=== PATIENT | female | born 1945 | race Caucasian/White ===

== ENCOUNTER 2018-05-28 13:00 | Outpatient (RCR) | payer MEDICARE, SELFPAY | END 2018-05-28 13:10 | disposition home or self-care (01) | LOC: PT 13:00 | PROVIDERS: Visit Provider Physician Assistant | DX: M25.562 Pain in left knee (principal); M25.551 Pain in right hip | CPT/HCPCS: 97035; 97110; 97163 ==

== ENCOUNTER → 2018-06-30 17:04 | Outpatient (CLI) | payer MEDICARE, SELFPAY ==
[2018-06-30 19:07] LABS: Calcium 9.5 mg/dL (8.5-10.1); Free T4 (Free Thyroxine) 0.86 ng/dl (0.76-1.46); Thyroid Stimulating Hormone 1.18 uIU/ml (0.358-3.740)
[2018-07-02 07:54] LABS: Thyroid Peroxidase Antibodies <6 IU/mL (0-34)
[2018-07-04 08:48] LABS: Thyroid Stimulating Immunoglob <0.10 IU/L (0.00-0.55)
== END ==
PROVIDERS: Visit Provider Otolaryngology
DX: E04.1 Nontoxic single thyroid nodule (principal)
CPT/HCPCS: 36415; 82310; 84439; 84443; 84445; 86376

== ENCOUNTER → 2018-07-11 08:01 | Outpatient (CLI) | payer MEDICARE, SELFPAY ==
[2018-07-13 18:27] LABS: Calcium, Ionized 5.5 mg/dL (4.5-5.6); Parathyroid Hormone Intact 26 pg/mL (15-65)
== END ==
PROVIDERS: PCP Physician Assistant; Visit Provider Physician Assistant
DX: E04.1 Nontoxic single thyroid nodule (principal)
CPT/HCPCS: 36415; 82330; 83970

== ENCOUNTER 2018-12-25 11:00 | Outpatient (RCR) | payer MEDICARE, SELFPAY | END 2018-12-25 11:05 | disposition home or self-care (01) | LOC: OT 11:00 | PROVIDERS: Visit Provider Orthopaedic Surgery Adult Reconstructive Orthopaedic Surgery | DX: S42.92XD Fracture of left shoulder girdle, part unspecified, subsequent encounter for fracture with routine healing (principal) | CPT/HCPCS: 97014; 97110; 97140; 97165; G0283 ==

== ENCOUNTER → 2019-01-13 13:32 | Outpatient (CLI) | payer MEDICARE, SELFPAY ==
--- NOTE | 2019-01-13 13:34 | US_ITS ---
PROCEDURE: US THYROID CLINICAL INDICATION: Thyroid nodule COMPARISON: No exams were available for comparison FINDINGS: Right lobe: 2.5 x 5.2 x 1.8 centimeters. Mild inhomogeneous echogenicity. There are a few small hypoechoic nodules in the mid and lower lobe on the right side as well as small anechoic foci in the right lower lobe. There is a isoechoic lesion which is solid and wider compared to height measuring 1.2 centimeters in transverse diameter and 0.7 centimeters in height. The margins are well defined and there is no abnormal echogenic shadowing. Left lobe: 2.7 x 4.9 x 1.8 centimeters and also mildly inhomogeneous echogenicity. The entire left lobe shows scattered small anechoic foci with a small 0.6 centimeter hypoechoic nodule which is partially cystic in the lower pole and a hypoechoic nodule in the anterior upper pole measuring 0.6 centimeters. Isthmus: 1.2 centimeters. Additional findings: IMPRESSION: Multinodular thyroid gland. Nodules have a benign appearance although the anterior upper pole right thyroid lobe solid nodule is TR category 3, mildly suspicious and ACR recommendation is follow-up at 6-12 months. Dictated by: Augie Hayes 01/13/2019 15:08 Electronically signed by Augie Hayes in [facility] 01/13/2019 15:08
== END ==
PROVIDERS: PCP Physician Assistant; Visit Provider Otolaryngology
DX: E04.1 Nontoxic single thyroid nodule (principal)
CPT/HCPCS: 76536

== ENCOUNTER → 2019-01-19 14:57 | Outpatient (CLI) | payer MEDICARE, SELFPAY | PROVIDERS: Visit Provider Otolaryngology | DX: E04.9 Nontoxic goiter, unspecified (principal) | CPT/HCPCS: 36415; 84443 ==

== ENCOUNTER → 2020-06-08 07:40 | Outpatient (CLI) | payer MEDICARE, SELFPAY ==
--- NOTE | 2020-06-08 07:47 | CA_ITS ---
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 (R) 73.6/22.9 cm/sec RI: 0.68 Segmental A. Sup (R) 50.7/18.0 cm/sec Segmental A. Mid (R) 73.6/22.9 cm/sec Segmental A. Inf (R) 73.6/27.8 cm/sec Origin (L) 134.7/ cm/sec Proximal (L) 112.3/ cm/sec Mid (L) 163.2/ cm/sec Distal (L) 146.5/ cm/sec Renal Aorta Ratio (L) 2.00 Segmental A. (L) 65.1/17.1 cm/sec RI: 0.73 Segmental A. Sup (L) 51.3/19.2 cm/sec Segmental A. Mid (L) 64.1/16.0 cm/sec Segmental A. Inf (L) 65.1/17.1 cm/sec Renal Measurements Kidney Size (R) 11.2x6.5 cm Cortical Thickness (R) 1.1 cm Kidney Size (L) 11.0x6.8 cm Cortical Thickness (L) 1.4 cm Findings Study suggests less than 60% stenosis of the right renal artery. Study suggests no evidence of stenosis of the left renal artery. 3.4 X 3.4 cm cyst mid pole of right kidney. Conclusion Study suggests less than 60% stenosis of the right renal artery. Study suggests no evidence of stenosis of the left renal artery. 3.4 X 3.4 cm complex cyst mid pole of right kidney. Electronically signed by : Keon Chong MD 06/08/2020 17:39:49
--- NOTE | 2020-06-08 08:39 | US_ITS ---
PROCEDURE: US KIDNEY CLINICAL INDICATION: JANEEN Chronic kidney disease, hypertension COMPARISON: CT ABDPELWO CT abdomen pelvis wo con from 09/11/2018 US US THYROID from 01/13/2019 US CA RENAL ARTERY DUPLEX from 06/08/2020 FINDINGS: The right kidney is [id number]. There is mild cortical thinning the right kidney. There is a complex hypoechoic nodule projecting off the anterior aspect of the right kidney measuring 3 x 2 cm. This has some low level echoes anteriorly. This may represent a complex cyst. Cannot exclude a solid component. No hydronephrosis The left kidney is [id number]. Mild cortical thinning IMPRESSION: No hydronephrosis. Mild bilateral renal cortical thinning. Complex cystic lesion of the right kidney. Consider CT of the kidneys with renal protocol for further evaluation without and with contrast. MRI would also be of further value without and with gadolinium enhancement if patient is MRI compatible Dictated by: Keon Chong MD 06/08/2020 18:54 Keon Chong MD in [facility] 06/08/2020 18:54
== END ==
PROVIDERS: PCP Nurse Practitioner Family; Visit Provider Internal Medicine Nephrology
DX: N18.2 Chronic kidney disease, stage 2 (mild) (principal); I12.9 Hypertensive chronic kidney disease with stage 1 through stage 4 chronic kidney disease, or unspecified chronic kidney disease
CPT/HCPCS: 76770; 93976

== ENCOUNTER 2020-06-08 12:06 | Emergency (ER) | payer MEDICARE, SELFPAY ==
[2020-06-08 12:07] VITALS: BP 135/57; PULSE 80; RESP 18; TEMP 36.8; O2SAT 98; BMI 22.3
--- NOTE | 2020-06-08 12:11 | HMH.EDDIZZ ---
ED Disposition Clinical Impression: UTI (urinary tract infection) Qualifiers: Urinary tract infection type: site unspecified Hematuria presence: without hematuria Qualified Code(s): N39.0 - Urinary tract infection, site not specified Disposition: Home, Self-Care Condition on Discharge: Good Referrals: Radha Calvin APRN [Primary Care Provider] - 3 days Time of Disposition: 14:05 - Critical Care Critical Care Time: No Attestation: On , the high probability of a clinically significant, sudden or life threatening deterioration of the following system(s) required my full and direct attention, intervention and personal management. The time I documented below is in addition to time spent performing reported procedures but includes the following listed in this critical care notation. Medical Decision Making - Medical Records Medical records reviewed: Yes: I reviewed the patient's medical records. - Harvinder Inquiry Pt receiving controlled substance: No Vital Signs: 06/08/20 12:07 Temperature 98.2 F Temperature Source Oral Pulse Rate [Right Radial] 80 Respiratory Rate 18 Blood Pressure [Right Arm] 135/57 L Blood Pressure Mean [Right Arm] 83 Blood Pressure Source [Right Arm] Automatic Cuff Blood Pressure Position [Right Arm] Sitting 02 Sat by Pulse Oximetry 98 Oxygen Delivery Method Room Air - Lab Data Lab results reviewed: Yes: I reviewed the patient's lab results. Lab Results 06/08/20 12:35: WBC 17.5 H, RBC 4.05 L, Hgb 12.9, Hct 39.3, MCV 97.0, MCH 31.8 H, MCHC 32.7, RDW 12.9, Plt Count 350, MPV 7.3 L, Neut % (Auto) 75.0, Lymph % (Auto) 21.4, [place] % (Auto) 2.8, Eos % (Auto) 0.4, Baso % (Auto) 0.3, Neut # (Auto) 13.1 H, Lymph # (Auto) 3.7, [place] # (Auto) 0.5, Eos # (Auto) 0.1, Baso # (Auto) 0.1 06/08/20 12:35: Sodium 136, Potassium 4.3, Chloride 98, Carbon Dioxide 24, Anion Gap 18.3 H, BUN 28 H, Creatinine 1.60 H, Estimated Creat Clear 29, Estimated GFR 32 L, Est GFR ( Amer) 38 L, Glucose 144 H, Calcium 8.6, Total Bilirubin 0.6, AST 30, ALT 27, Alkaline Phosphatase 62, Total Protein 7.5, Albumin 4.9, Globulin 2.6, Albumin/Globulin Ratio 1.9 H 06/08/20 12:40: Urine Color Yellow, Urine Appearance Clear, Urine pH 6.0, Ur Specific [place] 1.020, Urine Protein 1+, Urine Glucose (UA) Negative, Urine Ketones Trace, Urine Blood Negative, Urine Nitrate Negative, Urine Bilirubin Negative, Urine Urobilinogen 0.2, Ur Leukocyte Esterase 2+ A, Urine WBC 10-20, Ur Squamous Epith Cells Occasional, Urine Bacteria 1+, Hyaline Casts 5-10, Fine Granular Casts Occasional Result diagrams: 06/08/20 12:35 06/08/20 12:35 Orders (Tests/Meds): ORDERS Category Date Time Status Complete Blood Count Auto Diff Stat Lab 06/08/20 12:35 Results Urine Culture Stat Micro 06/08/20 12:40 Received - ECG Data Tracing #1 74 bpm, normal sinus rhythm, no ST elevation or depression, no ectopy, normal intervals. ECG initial impression date: 06/08/20 ECG initial impression time: 13:40 Medical Decision Narrative: Very pleasant 74-year-old female evaluated for neuro symptoms. Patient is in no acute distress on initial evaluation. CBC, CMP, urinalysis, CT of the head without contrast have been ordered. EKG is also obtained. Physical exam is unremarkable. NIHSS 0. CBC reveals a white count of 17.5. Patient's most recent WBC was 15. Uncertain if she has a chronic elevation or if that was in the setting of acute illness. Metabolic panel is remarkable for JANEEN. CT of the head is unremarkable. Urinalysis consistent with urinary tract infection. Patient is appropriate and stable. Discussed with her she needs to hydrate better drinking water. We will send the patient home with a prescription for antibiotics. Follow-up with PCP later this week. Dizzy HPI - General Stated Complaint: fatigue, balance is off Time Seen by Provider: 06/08/20 12:11 Mode of Arrival: Ambulatory Source of Information: Patient, Relative Limitations: No Limita
--- NOTE | 2020-06-08 12:12 | CT_ITS ---
PROCEDURE: CT HEAD/BRAIN WO CON CLINICAL INDICATION: dizzy Dizziness with headache COMPARISON: No exams were available for comparison TECHNIQUE: Axial images obtained. All CT scans at the facility use one or more dose reduction, viz: automated exposure control, ma/kV adjustment per patient size (including targeted exams where dose is matched to indication, i.e. head), or iterative reconstruction technique. FINDINGS: No midline shift, mass effect, intracranial hemorrhage, hydrocephalus, or extra-axial fluid collection is evident. There is generalized atrophy with hypoattenuation of the periventricular white matter consistent with microangiopathic changes.. Artifact is present from patient's earring on the left. The calvarium has an unremarkable appearance. No mastoid effusion. No sinus air-fluid level. IMPRESSION: No acute intracranial finding Dictated by: Keon Chong MD 06/08/2020 13:30 Keon Chong MD in [facility] 06/08/2020 13:30
[2020-06-08 12:37] VITALS: BP 138/71; PULSE 82; RESP 16; O2SAT 98
[2020-06-08 12:48] LABS: Microscopic, Urine URINE MICROSCOPIC (MICROSCOPIC)
[2020-06-08 12:51] LABS: Appearance,Urine CLEAR (Clear); Blood, Urine Negative (Negative); Color,Urine YELLOW (Yellow); Glucose,Urine (UA) Negative (Negative); Ketones,Urine TRACE (Negative); Leukocyte Esterase,Urine 2+ (Negative); Nitrate,Urine Negative (Negative); Protein,Urine 1+ (Negative); Urobilinogen,Urine 0.2 EU/dl (0.2)
[2020-06-08 12:51] LABS: Basophils # 0.1 K/mm3 (0-0.2); Basophils % 0.3 % (0.1-2.0); Eosinophils # 0.1 K/mm3 (0.0-0.4); Eosinophils % 0.4 % (0.1-12.0); Hematocrit 39.3 % (37.0-47.0); Hemoglobin 12.9 g/dL (12.2-16.2); Lymphocytes # 3.7 K/mm3 (0.7-4.5); Lymphocytes % 21.4 % (10-50); Mean Corpuscular HGB Conc 32.7 g/dL (31.8-35.4); Mean Corpuscular Hemoglobin 31.8 pg (27.0-31.2); Mean Platelet Volume 7.3 fl (7.4-10.4); Monocytes # 0.5 K/mm3 (0.1-1.0); Monocytes % 2.8 % (1.7-9.3); Neutrophils # 13.1 K/mm3 (1.8-7.8); Platelet Count 350 K/mm3 (142-424); Red Blood Count 4.05 M/mm3 (4.20-5.40); Red Cell Distribution Width 12.9 % (11.5-17.5); White Blood Count 17.5 K/mm3 (4.8-10.8)
[2020-06-08 13:07] VITALS: PULSE 78; RESP 17; O2SAT 99
[2020-06-08 13:17] LABS: Chloride 98 mmol/L (98-107); Potassium 4.3 mmoL/L (3.5-5.1); Sodium 136 mmol/L (136-145)
[2020-06-08 13:20] LABS: Alanine Aminotransferase 27 U/L (12-78); Albumin Level 4.9 g/dl (3.5-5.0); Albumin/Globulin Ratio 1.9 (1.1-1.8); Alkaline Phosphatase 62 U/L (38-126); Anion Gap 18.3 mEq/L (5-15); Aspartate Amino Transferase 30 U/L (14-36); Bilirubin,Total 0.6 mg/dl (0.2-1.3); Blood Urea Nitrogen 28 mg/dl (7-17); Calcium 8.6 mg/dl (8.4-10.2); Carbon Dioxide 24 mmol/L (22.0-30.0); Creatinine Clearance Estimated 29 mL/min (50-200); Estimated Glomerular Filt Rate 32 ml/min (>60); GFR (African American) 38 ML/MIN (>60); Globulin 2.6 g/dL (1.3-3.2); Glucose 144 mg/dl (74-100); Total Protein,Serum 7.5 g/dl (6.3-8.2)
[2020-06-08 13:29] LABS: MANUAL DIFFERENTIAL MANUAL DIFFERENTIAL (MANUAL DIFF)
[2020-06-08 13:30] VITALS: BP 128/73; PULSE 77; RESP 16; O2SAT 97
--- NOTE | 2020-06-08 13:36 | ECG_ITS ---
APPROVED REPORT Exam: Resting ECG HR:74 bpm ECG Measurements Heart Rate 74 AXES PA 162 P 19 QRSd 92 QRS 73 QT 406 T 44 QTc 450 Conclusion Normal sinus rhythm Normal ECG Electronically signed by : Amado Barclay, 06/08/2020 17:46:01
[2020-06-08 13:52] LABS: Bacteria,Urine 1+ /lpf; Squamous Epithelial Cell,Urine Occasional #/hpf (0-5)
[2020-06-08 13:54] LABS: Fine Granular Casts,Urine Occasional #/lpf (0)
[2020-06-08 13:55] LABS: Bilirubin,Urine Negative (Negative)
[2020-06-08 14:00] VITALS: PULSE 76; RESP 18; O2SAT 98
[2020-06-08 14:04] LABS: Lymphocytes % 9 % (10-50); Monocytes % 7 % (2-9); Neutrophils % 84 % (42-76); Total Cells Counted 100
[2020-06-08 14:05] LABS: Platelet Estimate Normal; RBC Morphology Normal
[2020-06-08 14:14] VITALS: BP 117/75; PULSE 76; RESP 20; TEMP 36.6; O2SAT 98
== END 2020-06-08 14:15 | disposition home or self-care (01) ==
PROVIDERS: Emergency Provider Family Medicine; PCP Nurse Practitioner Family
DX: N30.00 Acute cystitis without hematuria (principal); E11.65 Type 2 diabetes mellitus with hyperglycemia; F41.8 Other specified anxiety disorders; I10 Essential (primary) hypertension; E78.5 Hyperlipidemia, unspecified; F17.210 Nicotine dependence, cigarettes, uncomplicated; Z88.7 Allergy status to serum and vaccine; Z79.899 Other long term (current) drug therapy
CPT/HCPCS: 70450; 76770; 80053; 81001; 85007; 85025; 87086; 93005; 93976; 99283

== ENCOUNTER 2020-06-09 18:45 | Emergency (ER) | payer MEDICARE, SELFPAY ==
[2020-06-09] VITALS (8 sets, daily range): BP systolic 130–167; BP diastolic 62–79; PULSE 71–85; RESP 14–17; TEMP 36.6; O2SAT 94–98; BMI 22.3
[2020-06-09 19:48] LABS: Basophils # 0.1 K/mm3 (0-0.2); Basophils % 0.4 % (0.1-2.0); Eosinophils # 0.1 K/mm3 (0.0-0.4); Eosinophils % 0.3 % (0.1-12.0); Hematocrit 49.1 % (37.0-47.0); Hemoglobin 16.2 g/dL (12.2-16.2); Lymphocytes # 4.8 K/mm3 (0.7-4.5); Lymphocytes % 30.9 % (10-50); Mean Corpuscular Hemoglobin 32.4 pg (27.0-31.2); Mean Corpuscular Volume 98.4 fl (81-99); Mean Platelet Volume 7.2 fl (7.4-10.4); Monocytes # 0.5 K/mm3 (0.1-1.0); Monocytes % 3.1 % (1.7-9.3); Neutrophils # 10.1 K/mm3 (1.8-7.8); Neutrophils % 65.4 % (37.0-80.0); Platelet Count 259 K/mm3 (142-424); Red Blood Count 4.99 M/mm3 (4.20-5.40); White Blood Count 15.5 K/mm3 (4.8-10.8)
[2020-06-09 19:51] LABS: MANUAL DIFFERENTIAL MANUAL DIFFERENTIAL (MANUAL DIFF)
[2020-06-09 19:52] LABS: Chloride 96 mmol/L (98-107)
[2020-06-09 19:53] LABS: Potassium 4.2 mmoL/L (3.5-5.1); Sodium 134 mmol/L (136-145)
[2020-06-09 20:00] LABS: Lactic Acid 3.1 mmol/L (0.7-2.1)
[2020-06-09 20:05] LABS: Adenovirus,PCR Not Detected (NotDetected); Bordetella Pertussis Not Detected (NotDetected); Chlamydophila Pneumoniae, PCR Not Detected (NotDetected); Coronavirus 19, PCR Not Detected (NotDetected); Coronavirus 229E Not Detected (NotDetected); Coronavirus NL63 Not Detected (NotDetected); Coronavirus OC43 Not Detected (NotDetected); Coronovirus HKU1,PCR Not Detected (NotDetected); Human Metapneumovirus Not Detected (NotDetected); Influenza A, PCR Not Detected (NotDetected); Influenza AH1, 2009 Not Detected (NotDetected); Influenza AH1, PCR Not Detected (NotDetected); Influenza AH3,PCR Not Detected (NotDetected); Influenza B, PCR Not Detected (NotDetected); Lymphocytes % 32 % (10-50); Monocytes % 4 % (2-9); Mycoplasma Pneumoniae, PCR Not Detected (NotDetected); Neutrophils % 64 % (42-76); Parainfluenza 1, PCR Not Detected (NotDetected); Parainfluenza 2, PCR Not Detected (NotDetected); Parainfluenza 3, PCR Not Detected (NotDetected); Parainfluenza 4, PCR Not Detected (NotDetected); Platelet Estimate Normal; RBC Morphology Normal; Respiratory Syncytial Virus Not Detected (NotDetected); Rhinovirus/Enterovirus Not Detected (NotDetected); Total Cells Counted 100
[2020-06-09 20:13] LABS: Erythrocyte Sedimentation Rate 17 mm/hr (0-30)
--- NOTE | 2020-06-09 20:17 | HMH.EDUROGF ---
ED Disposition Clinical Impression: Dizziness, Renal insufficiency Adverse effects of medication Qualifiers: Encounter type: initial encounter Qualified Code(s): T50.905A - Adverse effect of unspecified drugs, medicaments and biological substances, initial encounter Disposition: Home, Self-Care Condition on Discharge: Good Instructions: DI for Muscle Weakness Additional Instructions: fluids and stop abx and dec metformin at this time and see pcp for follow up Referrals: Radha Calvin APRN [Primary Care Provider] - - Critical Care Critical Care Time: No Attestation: On 06/09/20, the high probability of a clinically significant, sudden or life threatening deterioration of the following system(s) required my full and direct attention, intervention and personal management. The time I documented below is in addition to time spent performing reported procedures but includes the following listed in this critical care notation. Medical Decision Making - Medical Records Medical records reviewed: Yes: I reviewed the patient's medical records. - Harvinder Inquiry Pt receiving controlled substance: No Vital Signs: 06/09/20 18:47 06/09/20 19:30 06/09/20 20:00 Temperature 97.8 F Temperature Source Oral Pulse Rate [Left Radial] 82 76 71 Respiratory Rate 16 17 17 Blood Pressure [Right Arm] 132/75 130/73 148/69 H Blood Pressure Mean [Right Arm] 94 92 95 Blood Pressure Source [Right Arm] Automatic Cuff Automatic Cuff Automatic Cuff Blood Pressure Position [Right Arm] Sitting Supine Supine 02 Sat by Pulse Oximetry 98 98 98 Oxygen Delivery Method Room Air Room Air Room Air 06/09/20 20:30 Temperature Temperature Source Pulse Rate [Left Radial] 71 Respiratory Rate 16 Blood Pressure [Right Arm] 166/79 H Blood Pressure Mean [Right Arm] 108 Blood Pressure Source [Right Arm] Automatic Cuff Blood Pressure Position [Right Arm] Supine 02 Sat by Pulse Oximetry 98 Oxygen Delivery Method Room Air - Lab Data Lab results reviewed: Yes: I reviewed the patient's lab results. Lab Results 06/09/20 19:30: WBC 15.5 H, RBC 4.99, Hgb 16.2, Hct 49.1 H, MCV 98.4, MCH 32.4 H, MCHC 33.0, RDW 13.0, Plt Count 259 D, MPV 7.2 L, Neut % (Auto) 65.4, Lymph % (Auto) 30.9, [place] % (Auto) 3.1, Eos % (Auto) 0.3, Baso % (Auto) 0.4, Neut # (Auto) 10.1 H, Lymph # (Auto) 4.8 H, [place] # (Auto) 0.5, Eos # (Auto) 0.1, Baso # (Auto) 0.1, Total Counted 100, Neutrophils % (Manual) 64, Lymphocytes % (Manual) 32, Monocytes % (Manual) 4, Platelet Estimate Normal, RBC Morphology Normal, ESR 17 06/09/20 19:30: Sodium 134 L, Potassium 4.2, Chloride 96 L, Carbon Dioxide 25, Anion Gap 17.2 H, BUN 25 H, Creatinine 1.20 H D, Estimated Creat Clear 39, Estimated GFR 44 L, Est GFR ( Amer) 53 L D, Glucose 157 H, Calcium 8.6, Total Bilirubin 0.6, AST 34, ALT 30, Alkaline Phosphatase 57, C-Reactive Protein 3.0, Total Protein 8.0, Albumin 4.9, Globulin 3.1, Albumin/Globulin Ratio 1.6, Procalcitonin 0.053 06/09/20 19:30: Lactate 3.1 H 06/09/20 19:30: Chlamy pneumoniae PCR Not detected, Adenovirus (PCR) Not detected, B. pertussis DNA (PCR) Not detected, Coronavirus OC43 (PCR) Not detected, Coronavirus HKU1 (PCR) Not detected, Coronavirus 229E (PCR) Not detected, SARS-CoV-2 (PCR) Not detected, Coronavirus NL63 (PCR) Not detected, Human Metapneumovir PCR Not detected, Influenza A (H1) PCR Not detected, Influ A (H1N1/09) PCR Not detected, Influenza A (H3) PCR Not detected, Influenza Type A (PCR) Not detected, Influenza Type B (PCR) Not detected, M. pneumoniae (PCR) Not detected, Parainfluenza 1 (PCR) Not detected, Parainfluenza 2 (PCR) Not detected, Parainfluenza 3 (PCR) Not detected, Parainfluenza 4 (PCR) Not detected, RSV (PCR) Not detected, Entero/Rhino (PCR) Not detected 06/09/20 20:40: Urine Color Yellow, Urine Appearance Clear, Urine pH 5.5, Ur Specific [place] 1.015, Urine Protein Negative, Urine Glucose (UA) Negative, Urine Ketones Negative, Urine Blood Negative, Urine Nitrate Ne
--- NOTE | 2020-06-09 20:27 | PC.NURSE ---
pt up to br.
[2020-06-09 20:31] LABS: Procalcitonin 0.053 ng/mL (0.0-2.0)
[2020-06-09 20:32] LABS: Alanine Aminotransferase 30 U/L (12-78); Albumin Level 4.9 g/dl (3.5-5.0); Albumin/Globulin Ratio 1.6 (1.1-1.8); Alkaline Phosphatase 57 U/L (38-126); Anion Gap 17.2 mEq/L (5-15); Aspartate Amino Transferase 34 U/L (14-36); Bilirubin,Total 0.6 mg/dl (0.2-1.3); Blood Urea Nitrogen 25 mg/dl (7-17); Calcium 8.6 mg/dl (8.4-10.2); Carbon Dioxide 25 mmol/L (22.0-30.0); Creatinine Clearance Estimated 39 mL/min (50-200); Estimated Glomerular Filt Rate 44 ml/min (>60); GFR (African American) 53 ML/MIN (>60); Globulin 3.1 g/dL (1.3-3.2); Glucose 157 mg/dl (74-100)
[2020-06-09 20:45] LABS: Microscopic, Urine URINE MICROSCOPIC (MICROSCOPIC)
[2020-06-09 20:47] LABS: Appearance,Urine CLEAR (Clear); Bilirubin,Urine Negative (Negative); Blood, Urine Negative (Negative); Color,Urine YELLOW (Yellow); Glucose,Urine (UA) Negative (Negative); Ketones,Urine Negative (Negative); Leukocyte Esterase,Urine TRACE (Negative); Nitrate,Urine Negative (Negative); PH,Urine 5.5 (5.0-8.5); Protein,Urine Negative (Negative); Specific Gravity, Urine 1.015 (1.005-1.030); Urobilinogen,Urine 0.2 EU/dl (0.2)
[2020-06-09 20:55] LABS: Squamous Epithelial Cell,Urine Occasional #/hpf (0-5)
--- NOTE | 2020-06-09 21:59 | CT_ITS ---
PROCEDURE: CT ABDOMEN PELVIS WO CON CLINICAL INDICATION: abd pain Abdominal pain, UTI, chills and weakness COMPARISON: CT ABDPELWO CT abdomen pelvis wo con from 09/11/2018 TECHNIQUE: Axial images obtained with sagittal and coronal reformats. All CT scans at the facility use one or more dose reduction, viz: automated exposure control, ma/kV adjustment per patient size (including targeted exams where dose is matched to indication, i.e. head), or iterative reconstruction technique. FINDINGS: LOWER THORAX: There is mild thickening of the pericardium anteriorly ABDOMEN & PELVIS: Prior cholecystectomy. Gastric wall appears thickened. The spleen and pancreas have an unremarkable appearance. Left adrenal gland is somewhat enlarged but maintains an adrenal form shape not significantly changed. Right adrenal gland has an unremarkable appearance. Exophytic isodense the projects off the lateral aspect of the right kidney consistent with a renal cyst at 2.9 cm. No intestinal obstruction or free air. No evidence of appendicitis or diverticulitis. There is a mild amount of retained colonic feces. There is scattered colonic diverticula but no evidence of diverticulitis. There are post hysterectomy changes. Nondistended fluid-filled small bowel loops are present with a few air-fluid levels. Degenerative disc disease L4-5 with 4 mm anterolisthesis of L4. IMPRESSION: 1. Diverticulosis. No evidence of diverticulitis. 2. Thickened gastric wall which may be due to nondistention. Differential diagnosis would include infiltrating neoplasm or gastritis. 3. Other nonacute findings as described above Dictated by: Keon Chong MD 06/10/2020 07:10 Keon Chong MD in [facility] 06/10/2020 07:10
--- NOTE | 2020-06-09 23:35 | XR_ITS ---
PROCEDURE: XR CHEST 2V CLINICAL HISTORY: Shortness of breath Shortness of breath, UTI, elevated blood pressure COMPARISON: CR Chest from 09/10/2018 FINDINGS: The cardiomediastinal silhouette and pulmonary vascularity are within normal limits. No lobar consolidation or collapse. On the lateral view there is a 10 mm nodular opacity projecting along the anterior clear space. Degenerative changes left shoulder, suspect old left humeral neck fracture IMPRESSION: 1. No acute finding. 2. 10 mm nodule anterior clear space. Consider chest CT for further evaluation. Dictated by: Keon Chong MD 06/10/2020 06:37 Keon Chong MD in [facility] 06/10/2020 06:37
[2020-06-09 23:45] LABS: Reflex Lactic Add Lactic Reflex
[2020-06-09 23:53] LABS: Lactic Acid Follow Up (RFLX 1) 0.9 mmol/L (0.7-2.1)
[2020-06-10 00:15] VITALS: BP 146/69; PULSE 73; RESP 19; TEMP 36.7; O2SAT 98
== END 2020-06-10 00:19 | disposition home or self-care (01) ==
PROVIDERS: Emergency Medicine; Emergency Provider Emergency Medicine; PCP Nurse Practitioner Family
DX: T36.4X1A Poisoning by tetracyclines, accidental (unintentional), initial encounter (principal); R42 Dizziness and giddiness; Y92.019 Unspecified place in single-family (private) house as the place of occurrence of the external cause; N28.9 Disorder of kidney and ureter, unspecified; I10 Essential (primary) hypertension; E78.5 Hyperlipidemia, unspecified; F41.8 Other specified anxiety disorders; E11.9 Type 2 diabetes mellitus without complications; Z79.84 Long term (current) use of oral hypoglycemic drugs; Z79.899 Other long term (current) drug therapy; F17.210 Nicotine dependence, cigarettes, uncomplicated; Z88.7 Allergy status to serum and vaccine
CPT/HCPCS: 71046; 74176; 80053; 81001; 83605; 84145; 85007; 85025; 85651; 86140; 87040; 87086; 87088; 87186; 87581; 87633; 87798; 96365; 96366; 96367; 96375; 99283; J2405

== ENCOUNTER → 2020-07-11 11:49 | Outpatient (CLI) | payer MEDICARE, SELFPAY ==
[2020-07-11 12:11] LABS: Basophils # 0.1 K/mm3 (0-0.2); Basophils % 0.4 % (0.1-2.0); Eosinophils # 0.2 K/mm3 (0.0-0.4); Eosinophils % 1.6 % (0.1-12.0); Hematocrit 35.2 % (37.0-47.0); Hemoglobin 11.8 g/dL (12.2-16.2); Lymphocytes # 3.3 K/mm3 (0.7-4.5); Lymphocytes % 22.8 % (10-50); Mean Corpuscular HGB Conc 33.5 g/dL (31.8-35.4); Mean Corpuscular Hemoglobin 31.7 pg (27.0-31.2); Mean Corpuscular Volume 94.6 fl (81-99); Monocytes # 0.6 K/mm3 (0.1-1.0); Monocytes % 3.9 % (1.7-9.3); Neutrophils # 10.4 K/mm3 (1.8-7.8); Neutrophils % 71.4 % (37.0-80.0); Platelet Count 384 K/mm3 (142-424); Red Blood Count 3.73 M/mm3 (4.20-5.40); White Blood Count 14.6 K/mm3 (4.8-10.8)
[2020-07-11 12:49] LABS: Albumin Level 4.7 g/dl (3.5-5.0); Anion Gap 17.2 mEq/L (5-15); Blood Urea Nitrogen 18 mg/dl (7-17); Carbon Dioxide 25 mmol/L (22.0-30.0); Chloride 96 mmol/L (98-107); Estimated Glomerular Filt Rate 49 ml/min (>60); GFR (African American) 59 ML/MIN (>60); Glucose 158 mg/dl (74-100); Phosphorous 5.4 mg/dl (2.5-4.5); Potassium 4.2 mmoL/L (3.5-5.1); Sodium 134 mmol/L (136-145)
[2020-07-11 13:05] LABS: 25-OH Vitamin D, Total 58.9 ng/mL (30-100)
== END ==
PROVIDERS: Visit Provider Hospitalist
DX: N17.9 Acute kidney failure, unspecified (principal)
CPT/HCPCS: 36415; 80069; 82306; 85025

== ENCOUNTER → 2020-07-12 12:27 | Outpatient (CLI) | payer MEDICARE, SELFPAY ==
[2020-07-12 12:29] LABS: Microscopic, Urine URINE MICROSCOPIC (MICROSCOPIC)
[2020-07-12 13:25] LABS: Appearance,Urine CLEAR (Clear); Bilirubin,Urine Negative (Negative); Blood, Urine Negative (Negative); Color,Urine YELLOW (Yellow); Glucose,Urine (UA) Negative (Negative); Ketones,Urine Negative (Negative); Leukocyte Esterase,Urine TRACE (Negative); Nitrate,Urine Negative (Negative); Protein,Urine Negative (Negative); Urobilinogen,Urine 0.2 EU/dl (0.2)
== END ==
PROVIDERS: Visit Provider Hospitalist
DX: N17.9 Acute kidney failure, unspecified (principal)
CPT/HCPCS: 81001

== ENCOUNTER → 2020-08-04 10:44 | Outpatient (CLI) | payer MEDICARE, SELFPAY ==
[2020-08-04 10:49] LABS: Microscopic, Urine URINE MICROSCOPIC (MICROSCOPIC)
[2020-08-04 11:17] LABS: Basophils # 0.1 K/mm3 (0-0.2); Basophils % 0.5 % (0.1-2.0); Eosinophils # 0.2 K/mm3 (0.0-0.4); Eosinophils % 1.4 % (0.1-12.0); Hematocrit 36.3 % (37.0-47.0); Hemoglobin 11.9 g/dL (12.2-16.2); Lymphocytes % 30.6 % (10-50); Mean Corpuscular HGB Conc 32.9 g/dL (31.8-35.4); Mean Corpuscular Hemoglobin 31.7 pg (27.0-31.2); Mean Corpuscular Volume 96.4 fl (81-99); Mean Platelet Volume 6.9 fl (7.4-10.4); Monocytes # 0.5 K/mm3 (0.1-1.0); Monocytes % 3.9 % (1.7-9.3); Neutrophils # 8.4 K/mm3 (1.8-7.8); Neutrophils % 63.6 % (37.0-80.0); Platelet Count 405 K/mm3 (142-424); Red Blood Count 3.76 M/mm3 (4.20-5.40); Red Cell Distribution Width 13.2 % (11.5-17.5); White Blood Count 13.2 K/mm3 (4.8-10.8)
[2020-08-04 11:37] LABS: Appearance,Urine CLEAR (Clear); Bilirubin,Urine Negative (Negative); Blood, Urine Negative (Negative); Color,Urine YELLOW (Yellow); Glucose,Urine (UA) Negative (Negative); Ketones,Urine Negative (Negative); Leukocyte Esterase,Urine TRACE (Negative); Nitrate,Urine Negative (Negative); Protein,Urine TRACE (Negative); Urobilinogen,Urine 0.2 EU/dl (0.2)
[2020-08-04 11:51] LABS: Chloride 93 mmol/L (98-107); Potassium 4.5 mmoL/L (3.5-5.1); Sodium 130 mmol/L (136-145)
[2020-08-04 11:52] LABS: Albumin Level 4.7 g/dl (3.5-5.0)
[2020-08-04 11:54] LABS: Anion Gap 14.5 mEq/L (5-15); Blood Urea Nitrogen 13 mg/dl (7-17); Calcium 9.1 mg/dl (8.4-10.2); Carbon Dioxide 27 mmol/L (22.0-30.0); Estimated Glomerular Filt Rate 70 ml/min (>60); GFR (African American) 85 ML/MIN (>60); Glucose 108 mg/dl (74-100); Phosphorous 3.9 mg/dl (2.5-4.5)
[2020-08-04 11:54] LABS: Creatinine,Urine Random 60 mg/dL (Not Estab.)
== END ==
PROVIDERS: Visit Provider Internal Medicine Nephrology
DX: N28.1 Cyst of kidney, acquired (principal)
CPT/HCPCS: 36415; 80069; 81001; 82570; 84155; 85025

== ENCOUNTER → 2020-08-16 08:38 | Outpatient (CLI) | payer MEDICARE, SELFPAY ==
--- NOTE | 2020-08-16 08:41 | CT_ITS ---
PROCEDURE: CT ABDOMEN WO/W CON CLINICAL HISTORY: COMPLEX RENAL CYST COMPARISON: CT ABDPELWO CT abdomen pelvis wo con from 09/11/2018 US US KIDNEY from 06/08/[address] ABDOMEN PELVIS WO CON from 06/09/2020 TECHNIQUE: Axial images obtained with sagittal and coronal reformats. All CT scans at the facility use one or more dose reduction, viz: automated exposure control, ma/kV adjustment per patient size (including targeted exams where dose is matched to indication, i.e. head), or iterative reconstruction technique. FINDINGS: Lower thorax: Lung bases are clear. There is minimal pericardial thickening anteriorly. Abdomen and pelvis: Prior cholecystectomy. Mild biliary ectasia. No focal liver lesion. Mild nodularity noted of the left adrenal gland at 13 mm measuring -2 Hounsfield units on the unenhanced image consistent with an adenoma. Right adrenal gland is unremarkable. The spleen has an unremarkable appearance as does the pancreas. Kidneys: 3 x 2.3 cm isodense lesion projects off the lateral aspect of the right kidney with unenhanced density of 6 Hounsfield units. This does not demonstrate any contrast enhancement or capsular enhancement or internal septations. No abnormal calcifications. By CT criteria this represents a benign-appearing cyst.. Properties noted on ultrasound may have been artifactual in nature. The cyst is slightly larger compared to 06/09/2020 at that time measuring 2.8 x 2.2 cm. There is a small left renal cyst at 9 mm. There is bilateral renal cortical scarring. There is a moderate amount of retained colonic feces. No intestinal obstruction or free air is evident. Degenerative changes are present in the lumbar spine IMPRESSION: 1. Right renal lesion appears to represent a benign cyst by CT criteria. 2. Left adrenal adenoma 3. Constipation Dictated by: Keon Chong MD 08/17/2020 08:41 Keon Chong MD in [facility] 08/17/2020 08:41
[2020-08-16 09:40] LABS: Blood Urea Nitrogen 15 mg/dl (7-17); Estimated Glomerular Filt Rate 61 ml/min (>60); GFR (African American) 74 ML/MIN (>60)
== END ==
PROVIDERS: PCP Nurse Practitioner Family; Visit Provider Internal Medicine Nephrology
DX: N28.1 Cyst of kidney, acquired (principal)
CPT/HCPCS: 36415; 74170; 82565; 84520; Q9967

== ENCOUNTER → 2021-03-13 11:01 | Outpatient (CLI) | payer MEDICARE, SELFPAY ==
[2021-03-13 11:06] LABS: Microscopic, Urine URINE MICROSCOPIC (MICROSCOPIC)
[2021-03-13 12:03] LABS: Albumin Level 4.8 g/dl (3.5-5.0); Anion Gap 15.1 mEq/L (5-15); Blood Urea Nitrogen 13 mg/dl (7-17); Calcium 9.6 mg/dl (8.4-10.2); Carbon Dioxide 30 mmol/L (22.0-30.0); Chloride 92 mmol/L (98-107); Estimated Glomerular Filt Rate 54 ml/min (>60); GFR (African American) 66 ML/MIN (>60); Glucose 122 mg/dl (74-100); Phosphorous 5.1 mg/dl (2.5-4.5); Potassium 4.1 mmoL/L (3.5-5.1); Sodium 133 mmol/L (136-145)
[2021-03-13 12:12] LABS: Appearance,Urine CLEAR (Clear); Bilirubin,Urine Negative (Negative); Blood, Urine Negative (Negative); Color,Urine YELLOW (Yellow); Glucose,Urine (UA) Negative (Negative); Ketones,Urine TRACE (Negative); Leukocyte Esterase,Urine TRACE (Negative); Nitrate,Urine Negative (Negative); PH,Urine 6.5 (5.0-8.5); Protein,Urine 2+ (Negative); Urobilinogen,Urine 0.2 EU/dl (0.2)
[2021-03-13 12:59] LABS: Creatinine,Urine Random 216 mg/dL (Not Estab.)
== END ==
PROVIDERS: Visit Provider Internal Medicine Nephrology
DX: N18.2 Chronic kidney disease, stage 2 (mild) (principal)
CPT/HCPCS: 36415; 80069; 81001; 82570; 84155

== ENCOUNTER → 2021-04-18 12:58 | Outpatient (CLI) | payer MEDICARE, SELFPAY ==
[2021-04-18 14:09] LABS: Chloride 92 mmol/L (98-107); Potassium 3.7 mmoL/L (3.5-5.1); Sodium 133 mmol/L (136-145)
[2021-04-18 14:12] LABS: Anion Gap 17.7 mEq/L (5-15); Blood Urea Nitrogen 10 mg/dl (7-17); Calcium 8.1 mg/dl (8.4-10.2); Carbon Dioxide 27 mmol/L (22.0-30.0); Estimated Glomerular Filt Rate 61 ml/min (>60); GFR (African American) 74 ML/MIN (>60); Glucose 121 mg/dl (74-100)
== END ==
PROVIDERS: Visit Provider Internal Medicine Nephrology
DX: N18.2 Chronic kidney disease, stage 2 (mild) (principal)
CPT/HCPCS: 36415; 80048

== ENCOUNTER 2021-04-25 15:49 | Emergency (ER) | payer MEDICARE, SELFPAY ==
[2021-04-25 17:31] VITALS: BP 141/70; PULSE 75; RESP 19; TEMP 36.9; O2SAT 97; BMI 21.4
--- NOTE | 2021-04-25 17:39 | HMH.EDUTC ---
[facility] [place] Disposition Clinical Impression: Exposure to COVID-19 virus Disposition: Home, Self-Care Condition on Discharge: Good Instructions: Cough, DI for COVID-19 (Suspected or Confirmed ), Preventing the Spread of Coronavirus Discharge Instructions Additional Instructions: *Monitor Temp, Over the counter Motrin or Tylenol as directed/as needed Tylenol every 4 hours and Motrin every 6 hours (as long as your family doctor has told you that you can take it) for fever or pain. and straight to ER if unable to lower temp less than 101.0 after medication given *Warm salt water gargles may help to soothe the throat *Throat Lozenges *Warm fluids like tea with honey may help to soothe the throat *Sleep elevated *Humidifier/Vaporizer Over the counter Robitussin may help with cough Follow up IMMEDIATELY for new or worsening symptoms or no Noticeable improvement over the next 48-72 hours. 911 for difficulty breathing or swallowing You were tested for today for COVID19 your test result should be back in the next 24-48 hours, you check your results on the [facility] [employer] health portal if you have trouble logging on or seeing your results you may call You was given a handout with instructions for Self Quarantine and Self isolation for while you wait on test results and what to do if they are positive If you are positive the Health Dept will be contacting you also Make sure to take your Vitamins Vit. C Vit D and Zinc if you can take them Referrals: Radha Calvin APRN [Primary Care Provider] - As needed Time of Disposition: 17:41 Medical Decision Making - Harvinder Inquiry Pt receiving controlled substance: No Harvinder was queried for this patient: No Vital Signs: 04/25/21 17:31 Temperature 98.4 F Temperature Source Oral Pulse Rate [Right Radial] 75 Respiratory Rate 19 Blood Pressure [Right Arm] 141/70 H Blood Pressure Mean [Right Arm] 93 Blood Pressure Source [Right Arm] Automatic Cuff Blood Pressure Position [Right Arm] Sitting 02 Sat by Pulse Oximetry 97 Oxygen Delivery Method Room Air Orders (Tests/Meds): ORDERS Category Date Time Status Covid-19 Nasal PCR ([facility]) Routine Lab 04/25/21 17:32 Received [facility] [place] HPI - General Stated complaint: exposed,cough,CHAMBERLAIN,Congestion,runny nose Time Seen by Provider: 04/25/21 17:39 Mode of Arrival: Ambulatory Source of Information: Patient Limitations: No Limitations Description of Symptoms (Recalled from Triage Doc. by RN): C/O cough and bodyaches since last night HEENT Symptoms (Recalled from RN notes): No Resp Symptoms (Recalled from RN notes): Yes (cough) Skin Symptoms (Recalled from RN notes): No MS Symptoms (Recalled from RN notes): Yes (bodyaches) Functional Status (Recalled from RN notes): n/a - History of Present Illness Provider Complaint: Patient states that she was recently exposed to COVID by her daughter in law that lives with her States that she has been having body aches, chills and dry cough State that family wanted her to come in and get tested for COVID - Related Data Home Medications Medication Instructions Recorded Confirmed B-complex with vitamin C 1 tab PO DAILY 07/14/18 06/09/20 Lactobacillus rhamnosus GG 10 1 cap PO DAILY cap 07/14/18 06/09/20 billion cell-inulin 200 mg capsule alendronate 35 mg tablet 35 mg PO QWEEK 07/14/18 06/09/20 atorvastatin 40 mg tablet 40 mg PO DAILY 07/14/18 06/09/20 buspirone 15 mg tablet 15 mg PO BID 07/14/18 06/09/20 fluoxetine 20 mg capsule 20 mg PO DAILY 07/14/18 06/09/20 fluoxetine 40 mg capsule 40 mg PO DAILY 07/14/18 06/09/20 metformin 500 mg tablet 500 mg PO BID 07/14/18 06/10/20 multivitamin,ab-vglc-[id number] 1 tab PO DAILY 07/14/18 06/09/20 niacin 250 mg tablet 250 mg PO DAILY 07/14/18 06/09/20 omega-3 fatty acids 1,000 mg 1,000 mg PO DAILY 07/14/18 06/09/20 capsule omeprazole 20 mg capsule,delayed 20 mg PO DAILY 07/14/18 06/09/20 release Doxycycline Hyclate [Doxycycline 100 mg PO Q12 06/09/20 06/09/20 100mg Caps
[2021-04-25 17:52] VITALS: BP 141/70; PULSE 75; RESP 19; TEMP 36.9; O2SAT 97
== END 2021-04-25 17:53 | disposition home or self-care (01) ==
PROVIDERS: Emergency Provider Nurse Practitioner; PCP Nurse Practitioner Family
DX: U07.1 COVID-19 (principal); F17.210 Nicotine dependence, cigarettes, uncomplicated
CPT/HCPCS: 99202; C9803; G0463; U0003; U0005

== ENCOUNTER → 2021-06-26 12:33 | Outpatient (CLI) | payer MEDICARE, SELFPAY ==
[2021-06-26 12:49] LABS: Microscopic, Urine URINE MICROSCOPIC (MICROSCOPIC)
[2021-06-26 13:56] LABS: Appearance,Urine CLEAR (Clear); Bilirubin,Urine Negative (Negative); Blood, Urine Negative (Negative); Color,Urine YELLOW (Yellow); Glucose,Urine (UA) Negative (Negative); Ketones,Urine Negative (Negative); Leukocyte Esterase,Urine Negative (Negative); Nitrate,Urine Negative (Negative); PH,Urine 6.5 (5.0-8.5); Protein,Urine 2+ (Negative)
[2021-06-26 14:10] LABS: Albumin Level 4.5 g/dl (3.5-5.0); Anion Gap 16.5 mEq/L (5-15); Blood Urea Nitrogen 11 mg/dl (7-17); Calcium 7.5 mg/dl (8.4-10.2); Carbon Dioxide 26 mmol/L (22.0-30.0); Chloride 96 mmol/L (98-107); Estimated Glomerular Filt Rate 54 ml/min (>60); GFR (African American) 66 ML/MIN (>60); Glucose 94 mg/dl (74-100); Phosphorous 5.2 mg/dl (2.5-4.5); Potassium 4.5 mmoL/L (3.5-5.1); Sodium 134 mmol/L (136-145)
[2021-06-26 14:12] LABS: Creatinine,Urine Random 129 mg/dL (Not Estab.)
[2021-06-26 16:23] LABS: Bacteria,Urine 1+ /lpf
== END ==
PROVIDERS: Visit Provider Internal Medicine Nephrology
DX: N18.2 Chronic kidney disease, stage 2 (mild) (principal)
CPT/HCPCS: 36415; 80069; 81001; 82570; 84155

== ENCOUNTER 2021-08-14 08:55 | Emergency (ER) | payer MEDICARE, SELFPAY ==
[2021-08-14 08:57] VITALS: BP 173/91; PULSE 98; RESP 16; TEMP 36.8; O2SAT 98; BMI 22.1
[2021-08-14 09:17] LABS: Microscopic, Urine URINE MICROSCOPIC (MICROSCOPIC)
[2021-08-14 09:27] LABS: Appearance,Urine CLEAR (Clear); Bilirubin,Urine Negative (Negative); Blood, Urine 1+ (Negative); Color,Urine YELLOW (Yellow); Glucose,Urine (UA) Negative (Negative); Ketones,Urine Negative (Negative); Leukocyte Esterase,Urine 1+ (Negative); Nitrate,Urine Negative (Negative); PH,Urine 7.5 (5.0-8.5); Protein,Urine 2+ (Negative); Urobilinogen,Urine 0.2 EU/dl (0.2)
[2021-08-14 09:42] LABS: Chloride 88 mmol/L (98-107); Potassium 3.7 mmoL/L (3.5-5.1); Sodium 127 mmol/L (136-145)
[2021-08-14 09:43] VITALS: BP 159/80; PULSE 90; O2SAT 94
[2021-08-14 09:44] LABS: Bacteria,Urine 1+ /lpf
[2021-08-14 09:44] LABS: Blood Urea Nitrogen 7 mg/dl (7-17); Creatinine Clearance Estimated 44 mL/min (50-200); Estimated Glomerular Filt Rate 70 ml/min (>60); GFR (African American) 85 ML/MIN (>60)
[2021-08-14 09:45] LABS: Alanine Aminotransferase 46 U/L (12-78); Albumin Level 4.7 g/dl (3.5-5.0); Albumin/Globulin Ratio 1.7 (1.1-1.8); Alkaline Phosphatase 88 U/L (38-126); Anion Gap 16.7 mEq/L (5-15); Aspartate Amino Transferase 56 U/L (14-36); Bilirubin,Total 0.6 mg/dl (0.2-1.3); Calcium 8.5 mg/dl (8.4-10.2); Carbon Dioxide 26 mmol/L (22.0-30.0); Globulin 2.8 g/dL (1.3-3.2); Glucose 166 mg/dl (74-100); Lipase 149 U/L (23-300); Total Protein,Serum 7.5 g/dl (6.3-8.2)
--- NOTE | 2021-08-14 09:45 | PC.NURSE ---
PT attempting small sips of water at this time
--- NOTE | 2021-08-14 09:46 | HMH.EDGENADL ---
ED Disposition Clinical Impression: UTI (urinary tract infection) Qualifiers: Urinary tract infection type: acute cystitis Hematuria presence: without hematuria Qualified Code(s): N30.00 - Acute cystitis without hematuria Disposition: Home, Self-Care Condition on Discharge: Good Instructions: DI for Urinary Tract Infection (UTI) Prescriptions: cephALEXin [Cephalexin 500mg Tab] 500 mg PO BID #14 tab Transmission Status: Pending to [facility] # Ondansetron [Zofran 4mg ODT] 4 mg PO BIDP PRN #10 tab PRN Reason: Nausea Transmission Status: Pending to [facility] # Referrals: Radha Clavin APRN [Primary Care Provider] - - Critical Care Critical Care Time: No Attestation: On 08/14/21, the high probability of a clinically significant, sudden or life threatening deterioration of the following system(s) required my full and direct attention, intervention and personal management. The time I documented below is in addition to time spent performing reported procedures but includes the following listed in this critical care notation. Medical Decision Making - Medical Records Medical records reviewed: Yes: I reviewed the patient's medical records. - Harvinder Inquiry Pt receiving controlled substance: No Vital Signs: 08/14/21 08:57 08/14/21 09:43 Temperature 98.3 F Temperature Source Oral Pulse Rate 90 Pulse Rate [Right] 98 H Respiratory Rate 16 Blood Pressure 159/80 H Blood Pressure [Right Arm] 173/91 H Blood Pressure Mean [Right Arm] 118 Blood Pressure Source [Right Arm] Automatic Cuff Blood Pressure Position [Right Arm] Sitting 02 Sat by Pulse Oximetry 98 94 L Oxygen Delivery Method Room Air - Lab Data Lab Results 08/14/21 09:08: Urine Color Yellow, Urine Appearance Clear, Urine pH 7.5, Ur Specific Gratis 1.010, Urine Protein 2+, Urine Glucose (UA) Negative, Urine Ketones Negative, Urine Blood 1+, Urine Nitrate Negative, Urine Bilirubin Negative, Urine Urobilinogen 0.2, Ur Leukocyte Esterase 1+ A, Urine RBC 5-10, Urine WBC 5-10, Ur Squamous Epith Cells 3-5, Urine Bacteria 1+ 08/14/21 09:14: WBC 12.9 H, RBC 4.08 L, Hgb 13.3, Hct 38.8, MCV 95.2, MCH 32.7 H, MCHC 34.3, RDW 14.2, Plt Count 385, MPV 8.0, Neut % (Auto) 70.1, Lymph % (Auto) 23.0, Osborne % (Auto) 5.1, Eos % (Auto) 0.6, Baso % (Auto) 1.2, Neut # (Auto) 9.0 H, Lymph # (Auto) 3.0, Osborne # (Auto) 0.7, Eos # (Auto) 0.1, Baso # (Auto) 0.2 08/14/21 09:14: Sodium 127 L, Potassium 3.7, Chloride 88 L, Carbon Dioxide 26, Anion Gap 16.7 H, BUN 7, Creatinine 0.80, Estimated Creat Clear 44, Estimated GFR 70, Est GFR ( Amer) 85, Glucose 166 H, Calcium 8.5, Total Bilirubin 0.6, AST 56 H, ALT 46, Alkaline Phosphatase 88, Troponin I < 0.01, Total Protein 7.5, Albumin 4.7, Globulin 2.8, Albumin/Globulin Ratio 1.7, Lipase 149, Acetone Level None detected Result diagrams: 08/14/21 09:14 08/14/21 09:14 Orders (Tests/Meds): ED MEDICATIONS Generic Name Dose Route Start Last Admin Trade Name Freq PRN Reason Stop Dose Admin Sodium Chloride 10 ml 08/14/21 09:35 Sodium Chloride 0.9% 10ml Flush Syringe IV 09/13/21 09:34 NEEDED PRN Maintain IV Site Discontinued Medications Generic Name Dose Route Start Last Admin Trade Name Freq PRN Reason Stop Dose Admin Lactated Ringer's 1,000 mls @ 999 mls/hr 08/14/21 09:15 08/14/21 09:20 Lactated Ringer's 1000 Ml Bag IV 08/14/21 10:15 999 mls/hr .Q1H1M ADONIS Administration Ondansetron HCl 4 mg 08/14/21 09:12 08/14/21 09:20 Ondansetron 4mg/2ml Vial IV 08/14/21 09:13 4 mg ONCE ONE Administration Promethazine HCl 25 mg 08/14/21 10:21 08/14/21 10:30 Promethazine Hcl 25mg/Ml 1ml Vial IV 08/14/21 10:22 25 mg ONCE ONE Administration Sodium Chloride 25 ml 08/14/21 10:21 Sodium Chloride 0.9% 25ml Bag IV 08/14/21 10:22 ONCE ONE ORDERS Category Date Time Status Troponin I Q3H Lab 08/14/21 12:15 Ordered Troponin I Q3
[2021-08-14 09:52] LABS: Basophils # 0.2 K/mm3 (0-0.2); Basophils % 1.2 % (0.1-2.0); Eosinophils # 0.1 K/mm3 (0.0-0.4); Eosinophils % 0.6 % (0.1-12.0); Hematocrit 38.8 % (37.0-47.0); Hemoglobin 13.3 g/dL (12.2-16.2); Mean Corpuscular HGB Conc 34.3 g/dL (31.8-35.4); Mean Corpuscular Hemoglobin 32.7 pg (27.0-31.2); Mean Corpuscular Volume 95.2 fl (81-99); Monocytes # 0.7 K/mm3 (0.1-1.0); Monocytes % 5.1 % (1.7-9.3); Neutrophils % 70.1 % (37.0-80.0); Platelet Count 385 K/mm3 (142-424); Red Blood Count 4.08 M/mm3 (4.20-5.40); Red Cell Distribution Width 14.2 % (11.5-17.5); White Blood Count 12.9 K/mm3 (4.8-10.8)
[2021-08-14 09:57] LABS: Troponin I < 0.01 ng/ml (0.00-0.034)
--- NOTE | 2021-08-14 10:21 | CT_ITS ---
FINAL REPORT CLINICAL HISTORY: NVD, H/O hysterectomy, appendectomy, and cholecystectomy COMPARISON: August 16, 2020 FINDINGS: Axial CT images of the abdomen and pelvis were obtained without intravenous contrast. Coronal reformatted images were also obtained.This study was performed with techniques to keep radiation doses as low as reasonably achievable (ALARA). Individualized dose reduction techniques using automated exposure control or adjustment of mA and/or kV according to the patient's size were employed. Abdomen: There is mild bronchial wall thickening in the lung bases. There is mild bronchiectasis in both lower lobes. There is mild scarring or atelectasis. There is no evidence of renal stone or hydronephrosis. The liver has a mildly lobular contour. Cirrhosis cannot be excluded. There has been cholecystectomy. The spleen and pancreas have an unremarkable, unenhanced appearance. Again seen are bilateral renal masses that likely represent cysts. No inflammatory process is identified. There is moderate vascular calcification. Pelvis: Images of the pelvis reveal no evidence of ureteral dilation or ureteral stone.No mass or abnormal fluid collection is identified. There is diverticulosis of the descending and sigmoid colon. There has been hysterectomy. There are moderate changes of the lumbar spine. IMPRESSION: Mild bronchial wall thickening with mild bronchiectasis in both lower lobes. Mild lobular contour of the liver. Cirrhosis cannot be excluded. Descending and sigmoid colon diverticulosis without evidence of diverticulitis. Reviewed, Interpreted and Dictated by Sherman Vitale III, MD Transcribed by Ron Kimbrough Authenticated by Sherman Vitale III, MD on 08/14/2021 11:48:05 AM [facility]
--- NOTE | 2021-08-14 10:35 | PC.NURSE ---
pt medicated per MAR and warm blanket provided
--- NOTE | 2021-08-14 10:40 | PC.NURSE ---
Pt over to CT
--- NOTE | 2021-08-14 10:42 | PC.NURSE ---
pt returned from CT
[2021-08-14 10:52] LABS: Acetone, Serum (Rapid) None Detected (None Detect)
--- NOTE | 2021-08-14 11:42 | PC.NURSE ---
Called rad to check on CT read. Advised she would call me back. Updated pt
--- NOTE | 2021-08-14 11:55 | PC.NURSE ---
Advised pt MD was reviewing everything and would be in to discuss
[2021-08-14 12:18] VITALS: BP 150/76; PULSE 70; RESP 16; TEMP 36.8; O2SAT 98
== END 2021-08-14 12:19 | disposition home or self-care (01) ==
PROVIDERS: Emergency Provider Emergency Medicine; PCP Nurse Practitioner Family
DX: N30.00 Acute cystitis without hematuria (principal); E11.9 Type 2 diabetes mellitus without complications; I10 Essential (primary) hypertension; F41.8 Other specified anxiety disorders; E78.5 Hyperlipidemia, unspecified; F17.210 Nicotine dependence, cigarettes, uncomplicated; Z79.899 Other long term (current) drug therapy
CPT/HCPCS: 74176; 80053; 81001; 82009; 83690; 84484; 85025; 87086; 87088; 87186; 96365; 96375; 99284; J2405